=== PATIENT | male | born 1985 | race Caucasian/White ===

== ENCOUNTER 2020-03-13 19:53 | Emergency (ER) | payer BC ==
[2020-03-13] MEDS ORDERED: Rabies Immune Globulin PF 150 Units/ML 10 ML SDV IM ONE (20:13)
[2020-03-13] MEDS ORDERED: Rabies Vaccine (Avian) 2.5 Unit Inj Kit IM ONE (20:13)
[2020-03-13] MEDS ORDERED: Diphtheria,Pertussis(Acell),Tetanus Vaccine 0.5 ML Syringe IM ONE (20:19)
[2020-03-13] MEDS ORDERED: Bacitracin Oint 1 GM U/D Packet TOP ONE (20:20)
--- NOTE | 2020-03-13 20:26 | EDM.PDOC ---
ED HPI GENERAL MEDICAL PROBLEM - General Chief Complaint: Bite:Animal, Insect Stated Complaint: DOG BITTE Time Seen by Provider: 03/13/20 19:56 Source of Information: Reports: Patient History Limitations: Reports: No Limitations - History of Present Illness INITIAL COMMENTS - FREE TEXT/NARRATIVE: HISTORY AND PHYSICAL: History of present illness: Patient is a 34-year-old male who presents to the emergency room with complaints of a dog bite to his right hand. He states he saw the dog and tried to pin it down to look at its collar when it reached around and bit the proximal knuckle of the right index finger. He does have 1 puncture wound. He states he is concerned as the dog looked sickly and was unable to catch the animal to see whom it belonged to. Patient denies any fever, chills, headache, change in vision, syncope or near syncope. Denies any chest pain, back pain, shortness of breath or cough. Denies any GI or symptoms. Patient has been eating and drinking appropriately. Unsure of his last tetanus update Review of systems: As per history of present illness and below otherwise all systems reviewed and negative. Past medical history: As per history of present illness and as reviewed below otherwise noncontributory. Surgical history: As per history of present illness and as reviewed below otherwise noncontributory. Social history: See social history for further information Family history: As per history of present illness and as reviewed below otherwise noncontributory. Physical exam: General: Well-developed and well-nourished 34-year-old male. Alert and oriented. Nontoxic-appearing and in no acute distress. HEENT: Atraumatic, normocephalic, pupils equal and reactive bilaterally, negative for conjunctival pallor or scleral icterus, mucous membranes moist, TMs normal bilaterally, throat clear, neck supple, nontender, trachea midline. No drooling or trismus noted. No meningeal signs. No hot potato voice noted. Lungs: Clear to auscultation, breath sounds equal bilaterally, chest nontender. Heart: S1S2, regular rate and rhythm without overt murmur Abdomen: Soft, nondistended, nontender. Skin: Single puncture noted to the right proximal knuckle of the index finger. No surrounding erythema. Otherwise remaining skin is intact, warm, dry. No lesions or rashes noted. Extremities: He moves all extremities per self without difficulty or deficits, negative for cords or calf pain. Neurovascular unremarkable. Neuro: Awake, alert, oriented. Cranial nerves II through XII unremarkable. Cerebellum unremarkable. Motor and sensory unremarkable throughout. Exam nonfocal. Notes: Discussed risks versus benefits of the rabies series, he would like to move forward and receive these. Puncture site was thoroughly cleaned. Bacitracin nonstick dressing was applied. We discussed signs and symptoms that would prompt him to return to the emergency room. Medication, follow-up and supportive care measures were reviewed and discussed. Voices understanding and is agreeable to plan of care. Denies any further questions or concerns at this time. Diagnostics: None Therapeutics: RabAvert, rabies immunoglobulin, Tdap, bacitracin Prescription: Augmentin Impression: Need for rabies vaccine Dog bite Plan: 1. Keep the area clean and dry. Continue to monitor for signs of infection. Take the antibiotic as prescribed 2. Tylenol and/or ibuprofen as needed for pain management. 3. Return for your rabies vaccines as directed. 4. Please follow-up with your primary care provider for re-evaluation. Return to the ED as needed and as discussed. Definitive disposition and diagnosis as appropriate pending reevaluation and review of above. - Related Data Allergies Allergy/AdvReac Type Severity Reaction Status Date / Time No Known Allergies Allergy Verified 03/13/20 20:06 Home Meds: Home Meds Amoxicillin/Clavulanate K [Augmentin 875-125 MG] 1 tab PO BID 10 Days #20 tablet 03/13/20 [Rx] Zyzol 1 tab PO DAILY 03/13/20 [History] Past Medical History - Past Health History Medical/Surgical History: Denies Medical/Surgical History HEENT History: Reports: Other (See Below) Other HEENT History: Seasonal Allergies - Infectious Disease History Infectious Disease History: Reports: Chicken Pox Social & Family History - Family History Family Medical History: Noncontributory - Tobacco Use Smoking Status *Q: Never Smoker - Recreational Drug Use Recreational Drug Use: No ED ROS GENERAL - Review of Systems Review Of Systems: Comprehensive ROS is negative, except as noted in HPI. ED EXAM, ANIMAL BITE - Physical Exam Exam: See Below (See dictation) Course - Vital Signs Last Recorded V/S: Last Vital Signs Temp 97.1 F 03/13/20 20:04 Pulse 90 03/13/20 20:04 Resp 18 03/13/20 20:04 BP 138/75 03/13/20 20:04 Pulse Ox 96 03/13/20 20:04 - Orders/Labs/Meds Orders: Active Orders 24 hr Category Date Time Status Vaccines to be Administered [RC] PER UNIT ROUTINE Care 03/13/20 20:19 Ordered Vaccines to be Administered [RC] PER UNIT ROUTINE Care 03/13/20 20:20 Ordered Meds: Medications Discontinued Medications Generic Name Dose Route Start Last Admin Trade Name Javier PRN Reason Stop Dose Admin Bacitracin 1 dose 03/13/20 20:20 Bacitracin Oint 1 Gm TOP 03/13/20 20:21 ONETIME ONE Diphtheria/Tetanus/Acell Pertussis 0.5 ml 03/13/20 20:19 Adacel IM 03/13/20 20:20 .ONCE ONE Rabies Immune Globulin 2,540 unit 03/13/20 20:13 Hyperrab S/D IM 03/13/20 20:14 ONETIME ONE Rabies Vaccine 2.5 unit 03/13/20 20:13 Rabavert IM 03/13/20 20:14 .ONCE ONE Departure - Departure Time of Disposition: 20:37 Disposition: Home, Self-Care 01 Clinical Impression: Need for rabies vaccination Dog bite Qualifiers: Encounter type: initial encounter Qualified Code(s): W54.0XXA - Bitten by dog, initial encounter - Discharge Information Prescriptions: Amoxicillin/Clavulanate K [Augmentin 875-125 MG] 1 tab PO BID 10 Days #20 tablet Forms: ED Department Discharge Sepsis Event Note (ED) - Evaluation Sepsis Screening Result: No Definite Risk - Focused Exam Vital Signs: Vital Signs Temp Pulse Resp BP Pulse Ox 03/13/20 20:04 97.1 F 90 18 138/75 96 - My Orders Last 24 Hours: My Active Orders 03/13/20 20:19 Vaccines to be Administered [RC] PER UNIT ROUTINE 03/13/20 20:20 Vaccines to be Administered [RC] PER UNIT ROUTINE - Assessment/Plan Last 24 Hours: My Active Orders 03/13/20 20:19 Vaccines to be Administered [RC] PER UNIT ROUTINE 03/13/20 20:20 Vaccines to be Administered [RC] PER UNIT ROUTINE
== END 2020-03-13 21:30 | disposition home or self-care (01) ==
LOC: MW.ED 19:53
DX: S61.451A Open bite of right hand, initial encounter (principal); Z23 Encounter for immunization; W54.0XXA Bitten by dog, initial encounter
CPT/HCPCS: 90375; 90471; 90675; 90715; 96372; 99283